=== PATIENT | female | born 1995 | race Caucasian/White ===

== ENCOUNTER 2022-04-12 13:03 | Day surgery (SDC) | payer BC ==
[2022-04-12 14:46] VITALS: BMI 29.3
[2022-04-12] MEDS ORDERED: hydrALAZINE 20 MG/ML VIAL SLOW IVP PRN (14:49)
== END 2022-04-12 14:55 | disposition home or self-care (01) ==
LOC: CSHLD/OP 13:03
PROVIDERS: ATTEND Obstetrics & Gynecology
DX: Z01.89 Encounter for other specified special examinations (principal); Z3A.36 36 weeks gestation of pregnancy
CPT/HCPCS: 99281